=== PATIENT | female | born 1965 | race African-American/Black ===

== ENCOUNTER 2019-03-02 09:52 | Inpatient (IN) ==
[2019-03-02 10:53] LABS: Basophils % 0.3 % (0.0-0.8); Eosinophils # 0.1 10*3/uL (0.0-0.87); Eosinophils % 0.5 % (0.00-10.9); Hematocrit 38.4 VOL% (35.7-47.0); Hemoglobin 12.8 GM/DL (12.0-16.0); Immature Granulocytes % 0.3 %; Immature Granulocytes Absolute 0.03 #; Lymphocytes # 3.1 10*3/uL (1.4-4.0); Lymphocytes % 33.9 % (21.3-54.2); Mean Corpuscular HGB Conc 33.3 GM/DL (32-36); Mean Corpuscular Volume 86.1 FL (87-102); Mean Platelet Volume 10.1 FL (9.6-12.0); Platelet Count 228 T/CUMM (130-400); Red Blood Count 4.46 MC/CUMM (3.8-5.5); Red Cell Distribution Width 15.4 % (9.3-17.3); White Blood Count 9.2 T/CUMM (4-12)
[2019-03-02 11:02] LABS: INR 0.9; PT Patient Result 9.7 SECS (9.6-12.2); Partial Thromboplastin Time 25.7 SECS (20.8-36.0)
[2019-03-02 11:12] LABS: Alanine Aminotransferase 17 U/L (13-56); Alkaline Phosphatase 86 U/L (45-117); Aspartate Amino Transferase 19 U/L (0-37); Bilirubin,Total < 0.39 MG/DL (0.2-1.0); Blood Urea Nitrogen 11 MG/DL (7-18); Calcium 9.2 MG/DL (8.5-10.1); Estimated Glom Filtration Rate 66 ML/MIN; Glucose 108 MG/DL (74-106); Osmolality,Calculated 272.8 MOS/KG (273-304); Total Protein 7.8 G/DL (6.4-8.3)
[2019-03-02] MEDS ORDERED: ONDANSETRON 4 MG/2 ML VIAL IV PRN (12:45)
[2019-03-02] MEDS ORDERED: BISACODYL 5 MG TABLET PO PRN (12:45)
[2019-03-02] MEDS ORDERED: traZODone 50 MG TABLET PO PRN (12:45)
[2019-03-02] MEDS ORDERED: GLUCAGON 1 MG VIAL IM PRN (12:45)
[2019-03-02] MEDS ORDERED: DEXTROSE 10% 25 GM/250 ML BAG IV PRN (12:45)
[2019-03-02] MEDS ORDERED: ACETAMINOPHEN 325 MG TABLET PO PRN (12:45)
[2019-03-02] MEDS: INSULIN REGULAR 100 UNIT/ML SUBCUT SCH ×2 (16:58→20:54)
[2019-03-02] MEDS: ASPIRIN EC 81 MG TABLET PO SCH (17:03)
[2019-03-02] MEDS: ENOXAPARIN 40 MG/0.4 ML SYRINGE SUBCUT SCH (17:05)
[2019-03-02] MEDS ORDERED: hydrALAZINE 20 MG/1 ML VIAL IV PRN (17:25)
[2019-03-02 17:28] LABS: Risk Ratio 2.08; VLDL CHOLESTEROL 12.8 MG/DL
[2019-03-03 09:04] LABS: Calcium 8.6 MG/DL (8.5-10.1); Osmolality,Calculated 273.7 MOS/KG (273-304)
[2019-03-03] MEDS: SIMVASTATIN 40 MG TABLET PO SCH (09:04)
[2019-03-03] MEDS: PANTOPRAZOLE 40 MG TABLET PO SCH (09:04)
[2019-03-03] MEDS: ASPIRIN EC 81 MG TABLET PO SCH (09:04)
[2019-03-03] MEDS: CLOPIDOGREL 75 MG TABLET PO SCH (09:04)
[2019-03-03] MEDS: LISINOPRIL/HCTZ 20-12.5 MG TABLET PO SCH (09:04)
[2019-03-03] MEDS: INSULIN REGULAR 100 UNIT/ML SUBCUT SCH ×4 (09:14→20:07)
[2019-03-03] MEDS ORDERED: POTASSIUM CHLORIDE RIDER 10 MEQ in PREMIX 1 EACH IV PRN (10:10)
[2019-03-03 12:56] LABS: Basophils % 0.3 % (0.0-0.8); Eosinophils # 0.1 10*3/uL (0.0-0.87); Eosinophils % 0.7 % (0.00-10.9); Hematocrit 38.7 VOL% (35.7-47.0); Hemoglobin 12.9 GM/DL (12.0-16.0); Immature Granulocytes % 0.3 %; Immature Granulocytes Absolute 0.04 #; Lymphocytes # 3.6 10*3/uL (1.4-4.0); Lymphocytes % 30.2 % (21.3-54.2); Mean Corpuscular HGB Conc 33.3 GM/DL (32-36); Mean Corpuscular Volume 85.4 FL (87-102); Mean Platelet Volume 10.3 FL (9.6-12.0); Monocytes % 9.2 % (1.7-12.7); Neutrophils % 59.3 % (38.7-73.9); Platelet Count 242 T/CUMM (130-400); Red Blood Count 4.53 MC/CUMM (3.8-5.5); Red Cell Distribution Width 15.2 % (9.3-17.3); White Blood Count 11.8 T/CUMM (4-12)
[2019-03-03] MEDS: ENOXAPARIN 40 MG/0.4 ML SYRINGE SUBCUT SCH (14:09)
[2019-03-04] MEDS: CLOPIDOGREL 75 MG TABLET PO SCH (08:14)
[2019-03-04] MEDS: LISINOPRIL/HCTZ 20-12.5 MG TABLET PO SCH (08:14)
[2019-03-04] MEDS: PANTOPRAZOLE 40 MG TABLET PO SCH (08:14)
[2019-03-04] MEDS: ASPIRIN EC 81 MG TABLET PO SCH (08:15)
[2019-03-04] MEDS: SIMVASTATIN 40 MG TABLET PO SCH (08:15)
[2019-03-04] MEDS: INSULIN REGULAR 100 UNIT/ML SUBCUT SCH ×2 (08:46→12:51)
[2019-03-04] MEDS ORDERED: NICOTINE 21 MG/24 HR PATCH TRANSDERM SCH (09:00)
[2019-03-04 09:40] LABS: Basophils # 0.1 10*3/uL (0.0-0.2); Basophils % 0.5 % (0.0-0.8); Eosinophils # 0.1 10*3/uL (0.0-0.87); Hematocrit 39.8 VOL% (35.7-47.0); Hemoglobin 13.2 GM/DL (12.0-16.0); Immature Granulocytes % 0.3 %; Immature Granulocytes Absolute 0.03 #; Lymphocytes # 2.8 10*3/uL (1.4-4.0); Mean Corpuscular HGB Conc 33.2 GM/DL (32-36); Mean Corpuscular Volume 85.8 FL (87-102); Mean Platelet Volume 10.9 FL (9.6-12.0); Monocytes % 9.5 % (1.7-12.7); Neutrophils % 61.7 % (38.7-73.9); Platelet Count 239 T/CUMM (130-400); Red Blood Count 4.64 MC/CUMM (3.8-5.5); Red Cell Distribution Width 15.2 % (9.3-17.3); White Blood Count 10.3 T/CUMM (4-12)
[2019-03-04 09:57] LABS: Osmolality,Calculated 271.1 MOS/KG (273-304)
[2019-03-04] MEDS ORDERED: hydroCHLOROthiazide 12.5 MG CAPSULE PO ONE (12:55)
[2019-03-04] MEDS: ENOXAPARIN 40 MG/0.4 ML SYRINGE SUBCUT SCH (13:52)
[2019-03-04 16:48] VITALS: BP 163/85
== END 2019-03-04 16:50 | disposition home or self-care (01) | DRG 66 ==
LOC: N.EDINP 09:52 → N.ED 09:52 → SUATTDRO 12:45 → N.2W 13:53 → N.4E 03-03 14:04
PROVIDERS: ADMIT Internal Medicine Cardiovascular Disease; ATTEND Internal Medicine

== ENCOUNTER 2020-09-27 08:17 | Inpatient (IN) ==
[2020-09-27] MEDS ORDERED: SODIUM CHLORIDE 0.9% 1,000 ML IV STA (08:54)
[2020-09-27] MEDS ORDERED: hydrALAZINE 20 MG/1 ML VIAL IV STA (08:55)
[2020-09-27 09:39] LABS: Basophils # 0.1 10*3/uL (0.0-0.2); Basophils % 0.3 % (0.0-0.8); Eosinophils % 0.1 % (0.00-10.9); Hematocrit 46.7 VOL% (35.7-47.0); Hemoglobin 15.6 GM/DL (12.0-16.0); Immature Granulocytes % 0.5 %; Lymphocytes # 2.3 10*3/uL (1.4-4.0); Lymphocytes % 12.2 % (21.3-54.2); Mean Corpuscular HGB Conc 33.4 GM/DL (32-36); Mean Corpuscular Volume 85.1 FL (87-102); Mean Platelet Volume 10.2 FL (9.6-12.0); Monocytes % 6.6 % (1.7-12.7); Neutrophils % 80.3 % (38.7-73.9); Platelet Count 299 T/CUMM (130-400); Red Blood Count 5.49 MC/CUMM (3.8-5.5); Red Cell Distribution Width 15.9 % (9.3-17.3)
[2020-09-27 10:02] LABS: Albumin 4.6 G/DL (3.4-5.0); Bilirubin,Total 0.5 MG/DL (0.2-1.0); Calcium 10.1 MG/DL (8.5-10.1); Osmolality,Calculated 253.2 MOS/KG (273-304); Potassium 3.6 MMOL/L (3.5-5.1); Total Protein 9.4 G/DL (6.4-8.2)
[2020-09-27 11:17] LABS: Amorphous Crystals,Urine Few /HPF (Few); Bilirubin,Urine Negative (Negative); Blood, Urine Small mg/dL (Negative); Glucose,Urine (UA) Negative (Negative); Ketones,Urine 20 mg/dL (Negative); Mucus,Urine Occasional /LPF (Occasional); Nitrite,Urine Negative (Negative); Protein,Urine 30 MG/DL; RBC,Urine 2 /HPF (0-4); Squamous Epithelial Cell,Urine Moderate /HPF (0-10); Urine Appearance CLOUDY (Clear); Urine Color Red (Yellow); Urine Specific Gravity 1.008 (1.001-1.035); Urine Urobilinogen < 2.0 EU/DL (0.2-1.0)
[2020-09-27] MEDS ORDERED: HYDROmorphone 2 MG/1 ML VIAL IV STA (12:38)
[2020-09-27] MEDS ORDERED: ONDANSETRON 4 MG/2 ML VIAL IV STA (12:39)
[2020-09-27] MEDS ORDERED: methylPREDNISolone SOD SUC 125 MG/2 ML VIAL ONE (13:17)
[2020-09-27] MEDS ORDERED: RACEPINEPHRINE 0.5 ML NEB RESP TX STA (13:21)
[2020-09-27] MEDS ORDERED: methylPREDNISolone SOD SUC 125 MG/2 ML VIAL IV STA (13:21)
[2020-09-27] MEDS ORDERED: diphenhydrAMINE 50 MG/1 ML VIAL IV STA (13:22)
[2020-09-27] MEDS ORDERED: MORPHINE 4 MG/1 ML VIAL IV PRN (13:35)
[2020-09-27] MEDS ORDERED: GLUCAGON 1 MG VIAL IM PRN (13:35)
[2020-09-27] MEDS ORDERED: DEXTROSE 50% 25 GM/50 ML VIAL IV PRN (13:35)
[2020-09-27] MEDS ORDERED: ONDANSETRON 4 MG/2 ML VIAL IV PRN (13:35)
[2020-09-27] MEDS: ENOXAPARIN 40 MG/0.4 ML SYRINGE SUBCUT SCH (14:54)
[2020-09-27] MEDS: amLODIPine 10 MG TABLET PO SCH (14:54)
[2020-09-27] MEDS: FAMOTIDINE 20 MG/2 ML VIAL IV SCH (14:59)
[2020-09-27] MEDS: AZITHROMYCIN INJ 500 MG in SODIUM CHLORIDE 0.9% 250 ML IV SCH (14:59)
[2020-09-27 15:59] LABS: Barbiturates Screen,Urine Negative (Negative); Benzodiazepines Screen,Urine Negative (Negative); Cannabinoid Screen,Urine Positive (Negative); Opiate Screen,Urine Negative (Negative); Phencyclidine Screen,Urine Negative (Negative)
[2020-09-27 16:23] LABS: Folate 18.82 NG/ML (5.38-24.0)
[2020-09-27 17:27] LABS: Risk Ratio 2.29; Thyroid Stimulating Hormone 0.877 uIU/ml (0.358-3.74); VLDL Cholesterol 12.6 MG/DL
[2020-09-27] MEDS: SODIUM CHLORIDE 0.9% 1,000 ML IV SCH (17:38)
[2020-09-27] MEDS: chlordiazePOXIDE 25 MG CAPSULE PO SCH ×2 (17:38→21:12)
[2020-09-27] MEDS: diphenhydrAMINE 50 MG/1 ML VIAL IV SCH (17:39)
[2020-09-27 17:47] LABS: INR 0.9; PT Patient Result 10.5 SECS (10.5-12.0); Partial Thromboplastin Time 32.9 SECS (23.9-33.8)
[2020-09-27] MEDS: ALBUTEROL/IPRATROPIUM 3 ML NEB RESP TX SCH (19:57)
[2020-09-28] MEDS: ALBUTEROL/IPRATROPIUM 3 ML NEB RESP TX SCH ×4 (00:27→19:20)
[2020-09-28] MEDS: diphenhydrAMINE 50 MG/1 ML VIAL IV SCH ×4 (00:36→18:25)
[2020-09-28] MEDS: FAMOTIDINE 20 MG/2 ML VIAL IV SCH ×3 (00:36→15:05)
[2020-09-28] MEDS: SODIUM CHLORIDE 0.9% 1,000 ML IV SCH ×3 (00:36→18:23)
[2020-09-28 06:34] LABS: Basophils % 0.1 % (0.0-0.8); Hematocrit 45.1 VOL% (35.7-47.0); Hemoglobin 14.8 GM/DL (12.0-16.0); Immature Granulocytes % 0.6 %; Immature Granulocytes Absolute 0.06 #; Lymphocytes # 1.4 10*3/uL (1.4-4.0); Lymphocytes % 13.6 % (21.3-54.2); Mean Corpuscular HGB Conc 32.8 GM/DL (32-36); Mean Corpuscular Volume 87.1 FL (87-102); Mean Platelet Volume 10.7 FL (9.6-12.0); Monocytes % 4.8 % (1.7-12.7); Neutrophils % 80.9 % (38.7-73.9); Platelet Count 191 T/CUMM (130-400); Red Blood Count 5.18 MC/CUMM (3.8-5.5); Red Cell Distribution Width 16.4 % (9.3-17.3); White Blood Count 10.5 T/CUMM (4-12)
[2020-09-28 06:42] LABS: Albumin 3.5 G/DL (3.4-5.0); Bilirubin,Total 0.8 MG/DL (0.2-1.0); Osmolality,Calculated 263.5 MOS/KG (273-304); Potassium 4.4 MMOL/L (3.5-5.1); Total Protein 7.8 G/DL (6.4-8.2)
[2020-09-28] MEDS ORDERED: methylPREDNISolone SOD SUC 125 MG/2 ML VIAL IV SCH (07:00)
[2020-09-28 07:29] LABS: Total Protein (Chem) 8.1 G/DL (6.4-8.3)
[2020-09-28] MEDS: THIAMINE 100 MG TABLET PO SCH (09:14)
[2020-09-28] MEDS: FOLIC ACID 1 MG TABLET PO SCH (09:15)
[2020-09-28] MEDS: chlordiazePOXIDE 25 MG CAPSULE PO SCH ×3 (09:15→20:56)
[2020-09-28] MEDS: amLODIPine 10 MG TABLET PO SCH (09:15)
[2020-09-28] MEDS: methylPREDNISolone SOD SUC 40 MG/1 ML VIAL IV SCH ×2 (09:48→20:57)
[2020-09-28 09:59] LABS: Albumin (SPE) 5.1 G/DL (3.2-5.3); Albumin (SPE) Rel % 63.1 %; Alpha 1 (SPE) 0.2 G/DL (0.1-0.4); Alpha 1 (SPE) Rel % 2.2 %; Alpha 2 (SPE) 0.8 G/DL (0.4-1.0); Alpha 2 (SPE) Rel % 10.3 %; Beta (SPE) 0.9 G/DL (0.5-1.1); Beta (SPE) Rel % 11.2 %; Gamma (SPE) 1.1 G/DL (0.7-1.7); Gamma (SPE) Rel % 13.2 %
[2020-09-28] MEDS: ENOXAPARIN 40 MG/0.4 ML SYRINGE SUBCUT SCH (15:01)
[2020-09-28] MEDS: AZITHROMYCIN INJ 500 MG in SODIUM CHLORIDE 0.9% 250 ML IV SCH (15:01)
[2020-09-28 15:51] LABS: Alanine Aminotransferase 15 U/L (13-56); Albumin 3.6 G/DL (3.4-5.0); Alkaline Phosphatase 87 U/L (45-117); Aspartate Amino Transferase 9 U/L (0-37); Bilirubin,Total < 0.39 MG/DL (0.2-1.0); Blood Urea Nitrogen 7 MG/DL (7-18); Calcium 8.8 MG/DL (8.5-10.1); Carbon Dioxide 22 MMOL/L (21-32); Estimated Glom Filtration Rate 57 ML/MIN; Glucose 331 MG/DL (74-106); Osmolality,Calculated 278.2 MOS/KG (273-304); Potassium 3.6 MMOL/L (3.5-5.1); Sodium 134 MMOL/L (136-145); Total Protein 7.7 G/DL (6.4-8.2)
[2020-09-29] MEDS: ALBUTEROL/IPRATROPIUM 3 ML NEB RESP TX SCH ×3 (00:36→13:05)
[2020-09-29] MEDS: FAMOTIDINE 20 MG/2 ML VIAL IV SCH (01:15)
[2020-09-29] MEDS: diphenhydrAMINE 50 MG/1 ML VIAL IV SCH ×3 (01:16→13:39)
[2020-09-29] MEDS: SODIUM CHLORIDE 0.9% 1,000 ML IV SCH (01:16)
[2020-09-29 06:28] LABS: Basophils % 0.1 % (0.0-0.8); Hematocrit 35.8 VOL% (35.7-47.0); Immature Granulocytes % 0.7 %; Immature Granulocytes Absolute 0.12 #; Lymphocytes # 1.1 10*3/uL (1.4-4.0); Lymphocytes % 6.1 % (21.3-54.2); Mean Corpuscular HGB Conc 33.5 GM/DL (32-36); Mean Platelet Volume 10.5 FL (9.6-12.0); Monocytes % 2.5 % (1.7-12.7); Neutrophils % 90.6 % (38.7-73.9); Platelet Count 214 T/CUMM (130-400); Red Blood Count 4.21 MC/CUMM (3.8-5.5); Red Cell Distribution Width 15.9 % (9.3-17.3)
[2020-09-29 06:30] LABS: White Blood Count 17.4 T/CUMM (4-12)
[2020-09-29 06:51] LABS: Hypochromasia Slight; Lymphocytes 4 % (20-55); Microcytosis Slight; Platelet Estimate Adequate; Segmented Neutrophils 93 % (50-85); Total Cells Counted 100
[2020-09-29 07:00] LABS: Bilirubin,Total 0.5 MG/DL (0.2-1.0); Calcium 8.5 MG/DL (8.5-10.1); Osmolality,Calculated 274.8 MOS/KG (273-304); Potassium 3.6 MMOL/L (3.5-5.1); Total Protein 6.3 G/DL (6.4-8.2)
[2020-09-29] MEDS ORDERED: INFLUENZA VIRUS VACCINE 0.5 ML SYRINGE IM ONE (07:54)
[2020-09-29] MEDS ORDERED: PNEUMOCOCCAL VACCINE (13 VALENT) 0.5 ML SYRINGE IM ONE (08:04)
[2020-09-29] MEDS ORDERED: MENINGOCOCCAL VACCINE 0.5 ML VIAL IM ONE (08:06)
[2020-09-29] MEDS: chlordiazePOXIDE 25 MG CAPSULE PO SCH (08:48)
[2020-09-29] MEDS: FOLIC ACID 1 MG TABLET PO SCH (08:48)
[2020-09-29] MEDS: methylPREDNISolone SOD SUC 40 MG/1 ML VIAL IV SCH (08:48)
[2020-09-29] MEDS: amLODIPine 10 MG TABLET PO SCH (08:49)
[2020-09-29] MEDS: THIAMINE 100 MG TABLET PO SCH (08:49)
[2020-09-29 11:38] VITALS: BP 143/89
== END 2020-09-29 13:50 | disposition home or self-care (01) | DRG 439 ==
LOC: N.ED 08:17 → SUATTDRO 13:28 → N.EDINP 13:28 → N.4E 15:28
PROVIDERS: ADMIT Internal Medicine; ATTEND Internal Medicine

== ENCOUNTER 2021-02-08 08:31 | Inpatient (IN) ==
[2021-02-03 11:02] LABS: Basophils % 0.5 % (0.0-0.8); Eosinophils # 0.2 10*3/uL (0.0-0.87); Eosinophils % 1.9 % (0.00-10.9); Hematocrit 42.4 VOL% (35.7-47.0); Hemoglobin 13.5 GM/DL (12.0-16.0); Immature Granulocytes % 0.1 %; Immature Granulocytes Absolute 0.01 #; Lymphocytes # 2.9 10*3/uL (1.4-4.0); Lymphocytes % 36.6 % (21.3-54.2); Mean Corpuscular HGB Conc 31.8 GM/DL (32-36); Mean Corpuscular Volume 85.8 FL (87-102); Mean Platelet Volume 11.6 FL (9.6-12.0); Monocytes % 8.3 % (1.7-12.7); Neutrophils % 52.6 % (38.7-73.9); Platelet Count 246 T/CUMM (130-400); Red Blood Count 4.94 MC/CUMM (3.8-5.5); Red Cell Distribution Width 15.9 % (9.3-17.3); White Blood Count 7.9 T/CUMM (4-12)
[2021-02-03 11:18] LABS: PT Patient Result 11.5 SECS (10.5-12.0); Partial Thromboplastin Time 29.9 SECS (23.8-32.1)
[2021-02-03 11:20] LABS: Calcium 9.3 MG/DL (8.5-10.1); Osmolality,Calculated 274.7 MOS/KG (273-304); Potassium 3.9 MMOL/L (3.5-5.1)
[~2021-02-08 08:31] MED LIST: ACETAMINOPHEN 500 MG TABLET PO ONE; FAMOTIDINE 20 MG TABLET PO ONE; GABAPENTIN 400 MG CAPSULE PO ONE
[2021-02-08] MEDS ORDERED: DIAZEPAM 5 MG TABLET PO ONE (08:43)
[2021-02-08] MEDS ORDERED: ALBUTEROL/IPRATROPIUM 3 ML NEB RESP TX STA (09:40)
[2021-02-08] MEDS ORDERED: LACTATED RINGERS 1,000 ML IV ONE (09:50)
[2021-02-08] MEDS ORDERED: LACTATED RINGERS 1,000 ML IV SCH (12:00)
[2021-02-08] MEDS ORDERED: TISSUE ADHESIVE 1 EACH APPLICATOR TOP ONE (12:10)
[2021-02-08] MEDS ORDERED: ONDANSETRON 4 MG/2 ML VIAL ONE (12:44)
[2021-02-08] MEDS ORDERED: ROCURONIUM 50 MG/5 ML VIAL IV ONE ×2 (12:44→14:59)
[2021-02-08] MEDS ORDERED: propofoL 200 MG/20 ML VIAL IV ONE (12:44)
[2021-02-08] MEDS ORDERED: SEVOFLURANE 1 UNIT/15 MINUTE INH ONE (12:44)
[2021-02-08] MEDS ORDERED: LIDOCAINE 2% 5 ML VIAL ONE (12:44)
[2021-02-08] MEDS ORDERED: fentaNYL 100 MCG/2 ML VIAL ONE ×2 (12:45→14:35)
[2021-02-08] MEDS ORDERED: MIDAZOLAM 2 MG/2 ML VIAL ONE (12:45)
[2021-02-08] MEDS ORDERED: LIDOCAINE 1% 5 ML VIAL ONE (12:47)
[2021-02-08] MEDS ORDERED: DEXAMETHASONE 4 MG/1 ML VIAL ONE (12:47)
[2021-02-08] MEDS ORDERED: ROPIVACAINE 0.5% 30 ML VIAL ONE (12:48)
[2021-02-08] MEDS ORDERED: PHENYLEPHRINE 10 MG/1 ML VIAL IV ONE (13:32)
[2021-02-08] MEDS ORDERED: fentaNYL 250 MCG/5 ML VIAL ONE (13:45)
[2021-02-08] MEDS ORDERED: METOPROLOL TARTRATE 5 MG/5 ML VIAL IV ONE (15:07)
[2021-02-08] MEDS ORDERED: SODIUM CHLORIDE 0.9% 1,000 ML IV ONE (15:47)
[2021-02-08] MEDS ORDERED: LACTATED RINGERS 2,000 ML IV ONE (15:47)
[2021-02-08] MEDS ORDERED: SUGAMMADEX 200 MG/2 ML VIAL IV ONE (16:00)
[2021-02-08] MEDS ORDERED: ONDANSETRON 4 MG/2 ML VIAL IV PRN ×2 (17:02→18:19)
[2021-02-08] MEDS ORDERED: HYDROmorphone 2 MG/1 ML VIAL IV PRN ×2 (17:02→18:19)
[2021-02-08] MEDS ORDERED: hydrALAZINE 20 MG/1 ML VIAL ONE (17:12)
[2021-02-08] MEDS ORDERED: hydrALAZINE 20 MG/1 ML VIAL IV ONE (17:17)
[2021-02-08] MEDS ORDERED: MEPERIDINE 25 MG/1 ML VIAL IV PRN (17:24)
[2021-02-08] MEDS ORDERED: MEPERIDINE 25 MG/1 ML VIAL ONE (17:25)
[2021-02-08] MEDS ORDERED: DEXTROSE 50% 25 GM/50 ML VIAL IV PRN (18:19)
[2021-02-08] MEDS ORDERED: GLUCAGON 1 MG VIAL IM PRN (18:19)
[2021-02-08] MEDS ORDERED: PROMETHAZINE 25 MG/1 ML VIAL IM PRN (18:19)
[2021-02-08] MEDS: LACTATED RINGERS 1,000 ML IV SCH ×2 (18:45→23:31)
[2021-02-08] MEDS: KETOROLAC 15 MG/1 ML VIAL IV SCH (18:46)
[2021-02-08] MEDS: INSULIN REGULAR 100 UNIT/ML SUBCUT SCH ×2 (18:47→21:05)
[2021-02-08 19:23] LABS: Basophils % 0.2 % (0.0-0.8); Hematocrit 45.5 VOL% (35.7-47.0); Hemoglobin 13.7 GM/DL (12.0-16.0); Immature Granulocytes % 0.4 %; Immature Granulocytes Absolute 0.08 #; Lymphocytes # 1.8 10*3/uL (1.4-4.0); Mean Corpuscular HGB Conc 30.1 GM/DL (32-36); Mean Corpuscular Volume 93.2 FL (87-102); Mean Platelet Volume 10.4 FL (9.6-12.0); Monocytes % 2.1 % (1.7-12.7); Neutrophils % 88.3 % (38.7-73.9); Platelet Count 236 T/CUMM (130-400); Red Blood Count 4.88 MC/CUMM (3.8-5.5); Red Cell Distribution Width 16.6 % (9.3-17.3); White Blood Count 19.5 T/CUMM (4-12)
[2021-02-08 19:36] LABS: Calcium 8.6 MG/DL (8.5-10.1); Osmolality,Calculated 276.8 MOS/KG (273-304); Potassium 4.4 MMOL/L (3.5-5.1)
[2021-02-09] MEDS: KETOROLAC 15 MG/1 ML VIAL IV SCH ×2 (00:43→05:58)
[2021-02-09] MEDS ORDERED: hydrALAZINE 20 MG/1 ML VIAL IV PRN (03:20)
[2021-02-09 05:11] LABS: Basophils % 0.2 % (0.0-0.8); Hematocrit 39.2 VOL% (35.7-47.0); Hemoglobin 12.7 GM/DL (12.0-16.0); Immature Granulocytes % 0.4 %; Immature Granulocytes Absolute 0.07 #; Lymphocytes # 2.4 10*3/uL (1.4-4.0); Lymphocytes % 15.5 % (21.3-54.2); Mean Corpuscular HGB Conc 32.4 GM/DL (32-36); Mean Corpuscular Volume 88.3 FL (87-102); Mean Platelet Volume 10.7 FL (9.6-12.0); Monocytes % 11.5 % (1.7-12.7); Neutrophils % 72.4 % (38.7-73.9); Platelet Count 213 T/CUMM (130-400); Red Blood Count 4.44 MC/CUMM (3.8-5.5); Red Cell Distribution Width 16.2 % (9.3-17.3); White Blood Count 15.7 T/CUMM (4-12)
[2021-02-09 05:46] LABS: Calcium 8.9 MG/DL (8.5-10.1); Osmolality,Calculated 283.3 MOS/KG (273-304); Potassium 4.2 MMOL/L (3.5-5.1)
[2021-02-09 08:05] VITALS: BP 134/70
[2021-02-09] MEDS: INSULIN REGULAR 100 UNIT/ML SUBCUT SCH ×2 (08:34→08:44)
[2021-02-09] MEDS ORDERED: ASPIRIN EC 81 MG TABLET PO SCH (09:00)
[2021-02-09] MEDS ORDERED: FAMOTIDINE 20 MG TABLET PO SCH (09:00)
[2021-02-09] MEDS ORDERED: ENOXAPARIN 40 MG/0.4 ML SYRINGE SUBCUT SCH (10:30)
[2021-02-09] MEDS ORDERED: SIMVASTATIN 40 MG TABLET PO SCH (21:00)
== END 2021-02-09 10:03 | disposition home or self-care (01) | DRG 358 ==
LOC: N.OR 08:31 → N.SDSINP 08:32 → N.3E 18:18
PROVIDERS: ADMIT Surgery; ATTEND Surgery

== ENCOUNTER 2021-12-06 14:04 | Observation (INO) ==
[2021-12-06 14:45] LABS: Basophils % 0.3 % (0.0-0.8); Eosinophils # 0.1 10*3/uL (0.0-0.87); Eosinophils % 0.4 % (0.00-10.9); Hematocrit 43.5 VOL% (35.7-47.0); Hemoglobin 14.4 GM/DL (12.0-16.0); Immature Granulocytes % 0.2 %; Immature Granulocytes Absolute 0.03 #; Lymphocytes # 3.7 10*3/uL (1.4-4.0); Lymphocytes % 29.3 % (21.3-54.2); Mean Corpuscular HGB Conc 33.1 GM/DL (32-36); Mean Platelet Volume 10.3 FL (9.6-12.0); Monocytes # 1.3 10*3/uL (0.11-0.8); Monocytes % 9.9 % (1.7-12.7); Neutrophils % 59.9 % (38.7-73.9); Platelet Count 300 T/CUMM (130-400); White Blood Count 12.8 T/CUMM (4-12)
[2021-12-06 15:05] LABS: Albumin 3.9 G/DL (3.4-5.0); Bilirubin,Total 0.4 MG/DL (0.20-1.00); Calcium 9.8 MG/DL (8.5-10.1); Potassium 4.4 MMOL/L (3.5-5.1); Total Protein 7.6 G/DL (6.4-8.2)
[2021-12-06] MEDS ORDERED: ASPIRIN 325 MG TABLET PO STA (16:23)
[2021-12-06] MEDS ORDERED: ENOXAPARIN 100 MG/ML SYRINGE SUBCUT STA (16:23)
[2021-12-06] MEDS ORDERED: NITROGLYCERIN SL 0.4 MG TABLET SL PRN (16:23)
[2021-12-06] MEDS ORDERED: GLUCAGON 1 MG VIAL IM PRN (17:02)
[2021-12-06] MEDS ORDERED: ONDANSETRON 4 MG/2 ML VIAL IV PRN (17:02)
[2021-12-06] MEDS ORDERED: hydrALAZINE 20 MG/1 ML VIAL IV PRN (17:02)
[2021-12-06] MEDS ORDERED: ACETAMINOPHEN 325 MG TABLET PO PRN (17:02)
[2021-12-06] MEDS ORDERED: DEXTROSE 10% 250 ML BAG IV PRN (17:02)
[2021-12-06] MEDS ORDERED: METHOCARBAMOL 750 MG TABLET PO PRN (17:27)
[2021-12-06] MEDS ORDERED: KETOROLAC 30 MG/1 ML VIAL IV ONE (17:29)
[2021-12-06] MEDS ORDERED: ENOXAPARIN 40 MG/0.4 ML SYRINGE SUBCUT SCH (17:30)
[2021-12-06] MEDS ORDERED: NICOTINE 21 MG/24 HR PATCH TRANSDERM PRN (17:43)
[2021-12-07 05:06] LABS: Basophils # 0.1 10*3/uL (0.0-0.2); Basophils % 0.4 % (0.0-0.8); Eosinophils % 0.1 % (0.00-10.9); Hematocrit 44.4 VOL% (35.7-47.0); Hemoglobin 14.8 GM/DL (12.0-16.0); Immature Granulocytes % 0.5 %; Immature Granulocytes Absolute 0.07 #; Lymphocytes # 3.6 10*3/uL (1.4-4.0); Lymphocytes % 26.5 % (21.3-54.2); Mean Corpuscular HGB Conc 33.3 GM/DL (32-36); Mean Corpuscular Volume 86.5 FL (87-102); Mean Platelet Volume 11.3 FL (9.6-12.0); Monocytes # 1.3 10*3/uL (0.11-0.8); Monocytes % 9.6 % (1.7-12.7); Neutrophils % 62.9 % (38.7-73.9); Platelet Count 306 T/CUMM (130-400); Red Blood Count 5.13 MC/CUMM (3.8-5.5); Red Cell Distribution Width 14.7 % (9.3-17.3); White Blood Count 13.4 T/CUMM (4-12)
[2021-12-07 05:29] LABS: Calcium 9.1 MG/DL (8.5-10.1); Osmolality,Calculated 272.8 MOS/KG (273-304); Potassium 3.7 MMOL/L (3.5-5.1); Risk Ratio 3.78
[2021-12-07] MEDS ORDERED: SIMVASTATIN 40 MG TABLET PO SCH (09:00)
[2021-12-07] MEDS ORDERED: PANTOPRAZOLE 40 MG TABLET PO SCH (09:00)
[2021-12-07] MEDS ORDERED: CLOPIDOGREL 75 MG TABLET PO SCH (09:00)
[2021-12-07] MEDS ORDERED: ASPIRIN CHEW 81 MG TABLET PO SCH (09:00)
[2021-12-07] MEDS ORDERED: LISINOPRIL/HCTZ 10-12.5 MG TABLET PO SCH (09:00)
[2021-12-07] MEDS: KETOROLAC 15 MG/1 ML VIAL IV SCH ×2 (09:33→16:10)
[2021-12-07 14:26] VITALS: BP 147/84
[2021-12-07] MEDS ORDERED: ENOXAPARIN 40 MG/0.4 ML SYRINGE SUBCUT SCH (15:00)
== END 2021-12-07 16:43 | disposition home or self-care (01) ==
LOC: N.ED 14:04 → N.EDINP 14:04 → N.TELES 17:44
PROVIDERS: ADMIT Internal Medicine; ATTEND Internal Medicine